=== PATIENT | male | born 1970 | race Caucasian/White ===

== ENCOUNTER 2020-07-15 17:20 | Outpatient (CLI) | payer BC, SELFPAY | END 2020-07-15 17:21 | disposition home or self-care (01) | LOC: ANHCOVIDVC 17:20 | PROVIDERS: PCP Internal Medicine | DX: Z23 Encounter for immunization (principal) | CPT/HCPCS: 0001A; 91300 ==

== ENCOUNTER 2020-08-05 17:21 | Outpatient (CLI) | payer BC, SELFPAY | END 2020-08-05 17:22 | disposition home or self-care (01) | LOC: ANHCOVIDVC 17:22 | PROVIDERS: PCP Internal Medicine | DX: Z23 Encounter for immunization (principal) | CPT/HCPCS: 0002A; 91300 ==